=== PATIENT | female | born 1980 | race Caucasian/White ===

== ENCOUNTER 2018-02-08 13:23 | Emergency (ER) | payer BC ==
[~2018-02-08 13:23] MED LIST: Iopamidol 370 76% 100 ML VIAL ONE
[2018-02-08 13:53] LABS: Bilirubin Negative (Negative); Blood, Urine Negative (Negative); Clarity Clear (Clear); Glucose, Urine (Dipstick) Negative (Negative); Leukocyte Small (Negative); Nitrite Negative (Negative); Protein, Urine (Dipstick) Negative (Neg-Trace); Urobilinogen 0.2 mg/dL (0.2-1.0); pH, Urine 7.5 (5.0-9.0)
[2018-02-08 13:56] LABS: Bacteria/HPF 2+ HPF (None Seen); RBC/HPF 0-3 HPF (0-3); Squamous Epithelial 0-3 HPF (0-3)
[2018-02-08 13:57] LABS: Pregnancy Test - Urine (BHCG) Negative (Negative); Pregu Control Background? CLEAR/WHITE (CLR/WHITE); Pregu Control Bar Appear? YES (CONTROL BAR)
[2018-02-08 14:20] LABS: #Lymphocytes 2.2 thou/uL (1.20-3.40); #Monocytes 0.4 thou/uL (0.11-0.59); #Neutrophils 4.3 thou/uL (1.40-6.50); %Basophils 0.7 % (0.0-1.0); %Eosinophils 0.1 % (0.0-10.0); %Lymphocytes 31.8 % (21.0-51.0); %Monocytes 5.5 % (0.0-10.0); %Neutrophils 61.9 % (42.0-75.0); Hemoglobin 12.2 g/dL (12.0-16.0); Mean Corpuscular HGB CONC 34.6 g/dL (32.0-36.0); Mean Corpuscular Hemoglobin 27.5 pg (27.0-31.0); Mean Corpuscular Volume 79.3 fL (78.0-98.0); Platelet Count 238 thou/uL (130-400); Red Blood Cell (RBC) Count 4.44 mill/uL (4.20-5.40); White Blood Cell (WBC) Count 6.9 thou/uL (4.8-10.8)
[2018-02-08] MEDS ORDERED: Metoclopramide HCl 10 MG/2 ML VIAL ONE (14:21)
[2018-02-08] MEDS ORDERED: Famotidine/PF 20 mg/2ml Vial ONE (14:21)
[2018-02-08 14:45] LABS: BUN (Urea Nitrogen) 7 mg/dL (7.0-18.7); Calc. Creatinine Clearance 0 mL/min (70-130); Calcium 8.4 mg/dL (7.8-10.44); Carbon Dioxide 17 mmol/L (22-29); Chloride 107 mmol/L (98-107); Estimated GFR-MDRD Greater than 90; Glucose 79 mg/dL (70-105); Potassium 3.5 mmol/L (3.5-5.1); Sodium 134 mmol/L (136-145)
[2018-02-08 14:46] LABS: ALT (SGPT) 16 U/L (8-55); AST (SGOT) 13 U/L (5-34); Alkaline Phosphatase 81 U/L (40-150); Bilirubin, Total 0.3 mg/dL (0.2-1.2); Globulin 3.1 g/dL (2.4-3.5); Lipase 13 U/L (8-78); Protein, Total 7.1 g/dL (6.0-8.3)
[2018-02-08 14:47] LABS: Anion Gap 14 mmol/L (10-20)
[2018-02-08] MEDS ORDERED: Ketorolac Tromethamine 30 MG/ML VIAL ONE (15:12)
--- NOTE | 2018-02-08 16:00 | CT ---
CT ABDOMEN AND PELVIS WITH IV CONTRAST: Indication: History of right sided and midabdominal abdominal pain. FINDINGS: Compared with prior noncontrast CT of the abdomen and pelvis dated 07-08-17. Gallbladder is surgically absent. No focal hepatic lesion is evident. Spleen is normal in size. The adrenal glands, pancreas, and kidneys appear within normal limits. There are extrarenal pelves bi laterally. No free fluid or enlarged lymph nodes are evident. There are a few mildly prominent loops of small bowel within the central abdomen. There is fluid dens ity within the colon. There is a peripherally enhancing cyst within the left adnexa which may reflect an involuting follicu lar cyst. A few scattered diverticula involving the colon. There is mild scattered degenerative and osteoarthri tic change. There is a normal appendix in the right lower quadrant of the abdomen. IMPRESSION: 1. Mildly prominent loops of small bowel within the central abdomen with fluid density within the col on can be seen with enterocolitis or F infectious inflammatory etiology. No large drainable fluid collection is evident. 2. Involuting cyst suspected within the left adnexa. 3. Cholecystectomy. POS: [facility]
== END 2018-02-08 16:13 | disposition home or self-care (01) ==
LOC: SCSER 13:23
DX: R10.11 Right upper quadrant pain (principal); E03.9 Hypothyroidism, unspecified; I10 Essential (primary) hypertension; G40.909 Epilepsy, unspecified, not intractable, without status epilepticus; E66.9 Obesity, unspecified; F41.9 Anxiety disorder, unspecified; F32.9 Major depressive disorder, single episode, unspecified; F17.210 Nicotine dependence, cigarettes, uncomplicated; Z79.899 Other long term (current) drug therapy
CPT/HCPCS: 74177; 80053; 81003; 81015; 81025; 83690; 85025; 87086; 96365; 96368; 96375; J1885; J2765; S0028

== ENCOUNTER 2018-06-15 10:54 | Outpatient (CLI) | payer BC ==
--- NOTE | 2018-06-15 12:38 | RAD ---
TWO VIEW CHEST: COMPARISON: 11/14/2012. INDICATION: Rheumatoid arthritis with rheumatoid factor, multisite. FINDINGS: The lungs are clear. There is no effusion or pneumothorax. Cardiac silhouette is normal in size. N o acute osseous abnormality. IMPRESSION: No focal consolidation. POS: [facility]
--- NOTE | 2018-06-15 14:02 | RAD ---
CERVICAL SPINE SERIES 8 VIEWS: INDICATION: Ankylosis spondylitis of cervical region. FINDINGS: Neutral view of the cervical spine reveals no evidence of subluxation through the visualized C6 level . Flexion and extension views reveal no obvious translational motion. Oblique views reveal no signi ficant osseous compromise of neural foramina. Vertebral body heights are maintained. IMPRESSION: No acute osseous abnormality or significant arthropathy of the cervical spine. POS: [facility]
== END 2018-06-15 10:55 | disposition home or self-care (01) ==
LOC: BICRAD 10:54
PROVIDERS: ATTEND Internal Medicine Rheumatology
DX: M45.2 Ankylosing spondylitis of cervical region (principal)
CPT/HCPCS: 71046; 72052

== ENCOUNTER 2019-12-09 15:04 | Outpatient (CLI) | payer BC ==
--- NOTE | 2019-12-09 15:38 | ULT ---
Exam:Leftlower extremity venous ultrasound with Doppler HISTORY: Leftlower extremity pain COMPARISON: None TECHNIQUE: Grayscale, color flow, Doppler imaging and spectral wave muscle performed left lower extre mity venous system FINDINGS: There is compressibility, presence of flow and augmentation in the common femoral vein, femoral vein and popliteal vein. There is flow in the posterior tibial vein. There is flow in the greater saphenous vein and profunda femoral vein IMPRESSION: No thrombus in the left lower extremity deep venous system.
== END 2019-12-09 15:05 | disposition home or self-care (01) ==
LOC: BICULT 15:04
PROVIDERS: ATTEND Family Medicine
DX: M79.662 Pain in left lower leg (principal)

== ENCOUNTER 2020-03-21 17:41 | Emergency (ER) | payer BC ==
[2020-03-21] MEDS ORDERED: Ketorolac Tromethamine 30 MG/ML VIAL ONE (18:19)
--- NOTE | 2020-03-21 20:25 | ULT ---
VENOUS DOPPLER ULTRASOUND OF THE LEFT LOWER EXTREMITY: Date: 03/21/2020 HISTORY: Left leg pain. TECHNIQUE: Lira scale ultrasound with color flow and spectral Doppler imaging of the deep venous system of the l eft lower extremity performed. FINDINGS: There is good flow, compression, and augmentation noted in the left common femoral, femoral, deep fem oral, popliteal, posterior tibial, and greater saphenous veins. Incidental note is made of a 4.7 x 1.4 x 3.0 cm avascular cystic mass in the left popliteal fossa con sistent with Nair's cyst. IMPRESSION: 1. No evidence of deep venous thrombosis in the left lower extremity. 2. Nair's cyst. POS: [facility]
== END 2020-03-21 20:15 | disposition home or self-care (01) ==
LOC: ERS 17:41
DX: M71.22 Synovial cyst of popliteal space [Baker], left knee (principal); M25.462 Effusion, left knee; M06.9 Rheumatoid arthritis, unspecified; E03.9 Hypothyroidism, unspecified; I10 Essential (primary) hypertension; G40.909 Epilepsy, unspecified, not intractable, without status epilepticus; E66.9 Obesity, unspecified; F41.9 Anxiety disorder, unspecified; F32.9 Major depressive disorder, single episode, unspecified; F17.210 Nicotine dependence, cigarettes, uncomplicated; Z79.899 Other long term (current) drug therapy
CPT/HCPCS: 96372; J1885

== ENCOUNTER 2020-04-07 13:39 | Outpatient (CLI) | payer BC ==
--- NOTE | 2020-04-07 15:45 | MRI ---
MRI Lower Ext Jt Lt WO Con History: Left knee pain Comparison: Knee radiograph December 09, 2019 Findings: Medial meniscus: Mild volume loss and free edge fraying throughout the body and posterior h orn. Minimal radial oblique tear posterior horn near the root. 1-2 mm medial gutter extrusion medial meniscal body. Lateral meniscus: Mild volume loss throughout the lateral meniscal body and posterior horn. 2-3 mm gu tter extrusion. ACL, PCL, MCL and LCL are all intact. Soft tissues: Large volume joint effusion with severe synovitis. Moderate popliteus bursa effusion co ntaining debris. Extensor mechanism: Quadriceps tendon, patella and patellar tendon are intact. Cartilage: Patellofemoral compartment: Multifocal 50-60% chondral fissures of the patellar apex and medial quezada lar facet. Medial compartment: No full-thickness chondral defect. Lateral compartment: No full-thickness chondral defect Bones: Patchy subcortical peripheral edema throughout the patella as well as medial and lateral tibia l plateaus also some mild patchy edema of the femoral condyles. Muscles: Muscle signal and bulk is normal. Impression: 1. Lateral meniscal free edge volume loss with mild gutter extrusion. 2. Low-grade medial meniscal free edge volume loss with incomplete radial oblique tear posterior horn near the root. 3. Large joint effusion with synovitis as well as patchy peripheral edema of the patella, distal femu r and proximal tibia can be seen with reflex sympathetic dystrophy. 4. Moderate popliteus bursa effusion containing debris. Message was sent to the ordering physician via [employer].
== END 2020-04-07 13:40 | disposition home or self-care (01) ==
LOC: SCSMRI 13:39
PROVIDERS: ATTEND Orthopaedic Surgery
DX: M23.92 Unspecified internal derangement of left knee (principal); S83.242A Other tear of medial meniscus, current injury, left knee, initial encounter; M65.9 Synovitis and tenosynovitis, unspecified; M25.462 Effusion, left knee; R60.0 Localized edema

== ENCOUNTER 2021-12-30 12:22 | Emergency (ER) | payer BC ==
[2021-12-30 13:27] LABS: #Lymphocytes 0.7 thou/uL (1.20-3.40); #Monocytes 0.4 thou/uL (0.11-0.59); #Neutrophils 4.8 thou/uL (1.40-6.50); %Basophils 0.3 % (0.0-1.0); %Eosinophils 0.2 % (0.0-10.0); %Lymphocytes 12.2 % (21.0-51.0); %Neutrophils 81.3 % (42.0-75.0); Hemoglobin 11.3 g/dL (12.0-16.0); Mean Corpuscular HGB CONC 30.9 g/dL (32.0-36.0); Mean Corpuscular Hemoglobin 24.2 pg (27.0-31.0); Mean Corpuscular Volume 78.2 fL (78.0-98.0); Mean Platelet Volume 8.5 fL (7.4-10.4); Platelet Count 263 thou/uL (130-400); RBC Distribution Width 16.1 % (11.5-14.5); Red Blood Cell (RBC) Count 4.69 mill/uL (4.20-5.40); White Blood Cell (WBC) Count 5.9 thou/uL (4.8-10.8)
[2021-12-30] MEDS ORDERED: Ketorolac Tromethamine 30 MG/ML VIAL ONE (13:39)
[2021-12-30] MEDS ORDERED: Dicyclomine 20 MG/2 ML VIAL ONE (13:39)
[2021-12-30] MEDS ORDERED: Ondansetron PF 4 MG/2 ML Vial ONE (13:39)
[2021-12-30 13:47] LABS: BHCG - Serum Negative (NEGATIVE); Pregs Control Background? CLEAR/WHITE (CLR/WHITE); Pregs Control Bar Appear? YES (CONTROL BAR)
[2021-12-30 13:50] LABS: ALT (SGPT) 16 U/L (8-55); AST (SGOT) 13 U/L (5-34); Albumin 4.2 g/dL (3.5-5.0); Alkaline Phosphatase 110 U/L (40-110); Anion Gap 14 mmol/L (10-20); BUN (Urea Nitrogen) 5 mg/dL (7.0-18.7); Bilirubin, Total 0.2 mg/dL (0.2-1.2); Calc. Creatinine Clearance 0 mL/min (70-130); Calcium 8.7 mg/dL (7.8-10.44); Carbon Dioxide 19 mmol/L (22-29); Chloride 110 mmol/L (98-107); Estimated GFR 109; Globulin 3.4 g/dL (2.4-3.5); Glucose 106 mg/dL (70-105); Lipase 9 U/L (8-78); Potassium 3.9 mmol/L (3.5-5.1); Protein, Total 7.6 g/dL (6.0-8.3); Sodium 139 mmol/L (136-145)
[2021-12-30 13:55] LABS: Bacteria/HPF None Seen HPF (None Seen); Bilirubin Negative (Negative); Blood, Urine Negative (Negative); Clarity Clear (Clear); Glucose, Urine (Dipstick) Normal (Negative); Ketone, Urine Negative (Negative); Leukocyte 250 Leu/uL (Negative); Nitrite Negative (Negative); Protein, Urine (Dipstick) 20 mg/dL (Neg-Trace); RBC/HPF 0-3 HPF (0-3); Specific Gravity, Urine 1.018 (1.002-1.036); Urobilinogen Normal mg/dL (Less than 2)
[2021-12-30] MEDS ORDERED: Iopamidol-370 76% 500 ML 1 ML ONE (14:53)
== END 2021-12-30 16:19 | disposition home or self-care (01) ==
LOC: ERS 12:22
DX: K52.9 Noninfective gastroenteritis and colitis, unspecified (principal); E86.0 Dehydration; E03.9 Hypothyroidism, unspecified; I10 Essential (primary) hypertension; E66.9 Obesity, unspecified; G40.909 Epilepsy, unspecified, not intractable, without status epilepticus; Z79.899 Other long term (current) drug therapy
CPT/HCPCS: 74177; 80053; 81003; 81015; 83690; 84703; 85025; 94760; 96361; 96372; 96374; 96375; J1885; J2405; Q9967

== ENCOUNTER 2023-08-08 04:05 | Emergency (ER) | payer BC ==
[2023-08-08] MEDS ORDERED: Ketorolac Tromethamine 30 MG (1 mL) VIAL ONE (04:26)
== END 2023-08-08 04:44 | disposition home or self-care (01) ==
LOC: ERS 04:05
DX: M54.42 Lumbago with sciatica, left side (principal); I10 Essential (primary) hypertension; E03.9 Hypothyroidism, unspecified; G40.909 Epilepsy, unspecified, not intractable, without status epilepticus; E66.9 Obesity, unspecified
CPT/HCPCS: 96372; 99283; J1885

== ENCOUNTER 2023-08-20 19:24 | Emergency (ER) | payer BC ==
[2023-08-20] MEDS ORDERED: Ondansetron ODT 4 MG TAB ONE (19:54)
[2023-08-20] MEDS ORDERED: Acetaminophen 500 MG TAB ONE (20:06)
[2023-08-20] MEDS ORDERED: Ketorolac Tromethamine 30 MG (1 mL) VIAL ONE (20:06)
[2023-08-20 20:09] LABS: #Monocytes 0.6 thou/uL (0.11-0.59); #Neutrophils 5.5 thou/uL (1.40-6.50); %Basophils 0.3 % (0.0-1.0); %Eosinophils 0.2 % (0.0-10.0); %Lymphocytes 28.3 % (21.0-51.0); %Monocytes 6.9 % (0.0-10.0); %Neutrophils 64.1 % (42.0-75.0); Hematocrit 39.9 % (36.0-47.0); Hemoglobin 12.1 g/dL (12.0-16.0); Mean Corpuscular HGB CONC 30.3 g/dL (32.0-36.0); Mean Corpuscular Hemoglobin 23.8 pg (27.0-31.0); Mean Corpuscular Volume 78.4 fl (78.0-98.0); Mean Platelet Volume 9.1 fL (7.4-10.4); Platelet Count 320 10x3/uL (130-400); RBC Distribution Width 15.5 % (11.5-14.5); Red Blood Cell (RBC) Count 5.09 mill/uL (4.20-5.40); White Blood Cell (WBC) Count 8.6 10x3/uL (4.8-10.8)
[2023-08-20 20:19] LABS: Bacteria/HPF None Seen HPF (None Seen); Bilirubin Negative (Negative); Blood, Urine Negative (Negative); CAUTI Indications for Culture Pelvic or flank pain; Clarity Clear (Clear); Glucose, Urine (Dipstick) Normal (Negative); Ketone, Urine Negative (Negative); Leukocyte 250 Leu/uL (Negative); Nitrite Negative (Negative); Protein, Urine (Dipstick) Negative (Neg-Trace); RBC/HPF 0-3 HPF (0-3); Specific Gravity, Urine 1.007 (1.002-1.036); Urobilinogen Normal mg/dL (Less than 2); WBC/HPF 0-3 HPF (0-3)
[2023-08-20 20:22] LABS: Urine Culture Reflex No No
[2023-08-20 20:24] LABS: AST (SGOT) 15 U/L (5-34); Albumin 4.4 g/dL (3.5-5.0); Bilirubin, Total 0.2 mg/dL (0.2-1.2); Calcium 9.5 mg/dL (7.8-10.44); Carbon Dioxide 20 mmol/L (22-29); Chloride 108 mmol/L (98-107); Globulin 3.8 g/dL (2.4-3.5); Glucose 90 mg/dL (70-105); Potassium 3.9 mmol/L (3.5-5.1); Protein, Total 8.2 g/dL (6.0-8.3); Sodium 138 mmol/L (136-145)
[2023-08-20 20:25] LABS: Alkaline Phosphatase 114 U/L (40-110)
[2023-08-20 20:26] LABS: Calc. Creatinine Clearance 0 mL/min (70-130); Estimated GFR 103
[2023-08-20 20:27] LABS: BUN (Urea Nitrogen) 13 mg/dL (7.0-18.7)
[2023-08-20 20:28] LABS: ALT (SGPT) 24 U/L (8-55); Anion Gap 15 mmol/L (10-20)
[2023-08-20 20:29] LABS: Lipase 16 U/L (8-78)
[2023-08-20 20:46] LABS: Troponin I 0.022 ng/mL (< 0.028)
== END 2023-08-20 21:43 | disposition home or self-care (01) ==
LOC: ERS 19:24
DX: R07.9 Chest pain, unspecified (principal); M79.10 Myalgia, unspecified site; E03.9 Hypothyroidism, unspecified; I10 Essential (primary) hypertension; Z79.899 Other long term (current) drug therapy
CPT/HCPCS: 36415; 71045; 80053; 81001; 83690; 84484; 85025; 93005; 96372; J1885; Q0162

== ENCOUNTER 2025-02-20 15:30 | Emergency (ER) | payer BC ==
[~2025-02-20 15:30] MED LIST changes: -Iopamidol 370 76% 100 ML VIAL ONE; +Iopamidol-370 76% 500 ML MDV (1 ML CHARGE) ONE
[2025-02-20] MEDS ORDERED: Ketorolac Tromethamine 30 MG (1 mL) VIAL ONE (16:44)
[2025-02-20] MEDS ORDERED: Ondansetron PF 4 MG/2 ML Vial ONE (16:45)
[2025-02-20 17:30] LABS: #Basophils 0.04 10x3/uL (0.0-0.2); #Eosinophils 0.14 10x3/uL (0.0-0.7); #Monocytes 0.64 10x3/uL (0.11-0.59); #Neutrophils 4.56 10x3/uL (1.40-6.50); %Basophils 0.6 % (0.0-1.0); %Eosinophils 1.9 % (0.0-10.0); %Lymphocytes 25.2 % (21.0-51.0); %Monocytes 8.9 % (0.0-10.0); %Neutrophils 63.1 % (42.0-75.0); Hematocrit 37.8 % (36.0-47.0); Hemoglobin 11.3 g/dL (12.0-16.0); Mean Corpuscular Hemoglobin 24.8 pg (27.0-31.0); Mean Corpuscular Volume 83.1 fL (78.0-98.0); Platelet Count 294 10x3/uL (130-400); Red Blood Cell (RBC) Count 4.55 mill/uL (4.20-5.40); White Blood Cell (WBC) Count 7.22 10x3/uL (4.8-10.8)
[2025-02-20 17:45] LABS: Bacteria/HPF None Seen HPF (None Seen); CAUTI Indications for Culture Dysuria,urgency,freq; Glucose, Urine (Dipstick) Normal (Negative); Leukocyte Negative Leu/uL (Negative); Protein, Urine (Dipstick) Negative (Neg-Trace); RBC/HPF 0-3 HPF (0-3); Specific Gravity, Urine 1.013 (1.002-1.036); WBC/HPF 0-3 HPF (0-3)
[2025-02-20 17:47] LABS: ALT (SGPT) 25 U/L (Less than 34); AST (SGOT) 20 U/L (11-34); Albumin 4.0 g/dL (3.1-4.5); Alkaline Phosphatase 131 U/L (40-110); Anion Gap 15 mmol/L (10-20); BUN (Urea Nitrogen) 7 mg/dL (7.0-18.7); Bilirubin, Total 0.2 mg/dL (0.3-1.2); Calc. Creatinine Clearance 0 mL/min (70-130); Calcium 9.0 mg/dL (7.8-10.44); Carbon Dioxide 20 mmol/L (22-29); Chloride 111 mmol/L (98-107); Globulin 3.2 g/dL (2.4-3.5); Glucose 95 mg/dL (70-105); Lipase 12 U/L (8-78); Potassium 3.8 mmol/L (3.5-5.1); Sodium 142 mmol/L (136-145)
[2025-02-20 17:48] LABS: Urine Culture Reflex No No
== END 2025-02-20 18:45 | disposition home or self-care (01) ==
LOC: ERS 15:30
DX: R10.11 Right upper quadrant pain (principal); E03.9 Hypothyroidism, unspecified; I10 Essential (primary) hypertension; E66.9 Obesity, unspecified; G40.909 Epilepsy, unspecified, not intractable, without status epilepticus; Z79.899 Other long term (current) drug therapy; Z79.890 Hormone replacement therapy
CPT/HCPCS: 74177; 80053; 81001; 83690; 85025; 96374; 96375; J1885; J2405; Q0162

== ENCOUNTER 2025-04-21 09:39 | Outpatient (CLI) | payer BC | END 2025-04-21 09:40 | disposition home or self-care (01) | LOC: BICMAMMO 09:39 | PROVIDERS: ATTEND Family Medicine | DX: Z12.31 Encounter for screening mammogram for malignant neoplasm of breast (principal); Z80.3 Family history of malignant neoplasm of breast | CPT/HCPCS: 77063; 77067 ==